=== PATIENT | female | born 1955 | race African-American/Black ===

== ENCOUNTER 2018-09-09 05:23 | Day surgery (SDC) | payer MEDICARE ==
[~2018-09-09] VITALS: Ht 149.9 cm; Wt 69.9 kg
--- NOTE | ~2018-09-09 | OP ---
PATIENT NAME: DEBORAH PIZANO MEDICAL RECORD: [id number] :51 LOCATION:D.OPS ADMISSION DATE: SURGEON: BUD ELIZABETH MD DATE OF OPERATION: 09/09/2018 PREOPERATIVE DIAGNOSIS: Carpal tunnel syndrome of the left with left ring finger trigger finger. POSTOPERATIVE DIAGNOSIS: Carpal tunnel syndrome of the left with left ring finger trigger finger. PROCEDURE: 1. Carpal tunnel release of the left wrist. 2. A1 sonia release of the left ring finger. SURGEON: Bud Elizabeth MD ANESTHESIA: None/local. INTRAOPERATIVE COMPLICATIONS: None. SUMMARY OF PATHOLOGIC FINDINGS: The patient has a very tight transverse carpal ligament consistent with the preoperative diagnosis, EMGs and NCVS. The patient also with a very tight A1 sonia consistent with diagnosis of trigger finger. OPERATIVE SUMMARY IN DETAIL: After obtaining the appropriate preoperative orthopedic surgery consent as well as anesthetic consultation, evaluation and clearance, the patient was brought to the operating room and placed on the operating room table in supine position. After adequate local anesthesia was administered, tourniquet was placed about the proximal aspect of the left upper extremity. Left upper extremity was then prepped and draped in routine sterile fashion. The arm was elevated and exsanguinated, tourniquet was inflated to 250 mmHg. Routine midpalmar incision was made in line with the third metacarpal ray, taken down to the level of the distal transverse metacarpal ligament. This was identified. A small incision was made here to identify the median nerve. The median nerve was identified and protected with a freer with the [place] light. Knife was then used to release the entire transverse carpal ligament. Having completed this, this wound was copiously irrigated and closed in a vertical mattress style fashion. A small incision was made over the A1 sonia of the ring finger. This was taken down to the level of the A1 sonia while the nerves were held retracted and protected. The A1 sonia was incised in its entirety. Visual inspection of the tendon showed some mild excoriated changes; however, no tearing was noted. This wound was irrigated and closed likewise. The area was infiltrated with 0.25% Marcaine. Sterile dressing was applied. Tourniquet was deflated. The patient was awakened and taken to recovery room in stable condition. All final needle and sponge counts were correct. TRANSINT:[id number] Voice Confirmation ID: [id number] DOCUMENT ID: [id number] OPERATIVE REPORT [id number] DEBORAH PIZANO MD, BUD WHEATLEY at 0840 CC: [id number] DICTATION DATE: 09/18/18 164 DIRECTOR OF STUDENT SERVICES: 09/18/18 2328 [facility] 09/09/18 [place] [id number] [place] [id number]
[2018-09-09 06:01] LABS: HEMATOCRIT 33.2 % (36.0-48.0); HEMOGLOBIN 11.1 g/dL (12-16); MCH 33.1 pg (26.0-34.0); MCHC 33.4 g/dL (31.0-37.0); MCV 99.1 fL (80.0-100.0); MEAN PLATELET VOLUME 9.3 fL (7.4-10.4); RBC 3.35 10x6/uL (4.00-5.40); RDW 12.9 % (11.5-14.5); WBC 5.2 10x3/uL (4.8-10.8)
[2018-09-09 06:42] VITALS: BP 132/72; Ht 149.9 cm; Wt 69.9 kg
== END 2018-09-09 09:20 | disposition home or self-care (01) ==
LOC: D.OPS 05:23 → D.PAN 07:30 → D.OPS 09:20 → D.PAN 09:55
PROVIDERS: Anesthesiology
DX: G56.02 Carpal tunnel syndrome, left upper limb (principal); M65.342 Trigger finger, left ring finger

== ENCOUNTER → 2018-09-23 17:26 | Outpatient (CLI) | payer MEDICARE ==
[2018-09-09 06:42] VITALS: BMI 31.1
[~2018-09-23 17:26] MED LIST: ASPIRIN81 MG PO; LOPRESSOR25 MG PO; PROTONIX40 MG PO
[2018-09-23 17:46] LABS: BASOPHILS 0.2 % (0-2); HEMATOCRIT 34.2 % (36.0-48.0); HEMOGLOBIN 11.5 g/dL (12-16); IMMATURE GRANULOCYTES 0.4 % (0-5); LYMPHOCYTES 22.3 % (15-50); MCH 33.4 pg (26.0-34.0); MCHC 33.6 g/dL (31.0-37.0); MCV 99.4 fL (80.0-100.0); MEAN PLATELET VOLUME 10.2 fL (7.4-10.4); MONOCYTES 12.3 % (2-11); NEUTROPHILS 62.8 % (40-80); PLATELET COUNT 263 10x3/uL (130-400); RBC 3.44 10x6/uL (4.00-5.40); RDW 12.7 % (11.5-14.5)
[2018-09-23 18:09] LABS: ALBUMIN 3.3 g/dL (3.4-5.0); BILIRUBIN - TOTAL 0.4 mg/dL (0.2-1.3); CALCIUM 8.5 mg/dL (8.5-10.1); CARBON DIOXIDE 26.5 mmol/L (21.0-32.0); CREATININE - SERUM 1.4 mg/dL (0.6-1.3); POTASSIUM - SERUM 4.5 mmol/L (3.5-5.1); PROTEIN - SERUM 8.1 g/dL (6.4-8.2)
[2018-09-30 14:07] LABS: WBC 5.1 10x3/uL (4.8-10.8)
== END | disposition home or self-care (01) ==
LOC: D.LABREF 17:26
PROVIDERS: Orthopaedic Surgery
DX: R55 Syncope and collapse (principal)

== ENCOUNTER 2018-09-27 02:14 | Observation (INO) | payer MEDICARE ==
[~2018-09-27] VITALS: Ht 149.9 cm; Wt 69.9 kg
--- NOTE | ~2018-09-27 | CN ---
PATIENT NAME:DEBORAH GRUBER MEDICAL RECORD: [id number] : 51 LOCATION:[facility] D.2124 ADMIT DATE: 09/27/18 ACCOUNT: [id number] CONSULTING PHYSICIAN: ZULLY AYALA MD REFERRING PHYSICIAN: ZULLY AYALA MD DATE OF CONSULTATION: 09/27/2018 DIAGNOSES: 1. Abdominal pain. 2. Nausea and vomiting. 3. Elevated troponin. HISTORY OF PRESENT ILLNESS: Ms. Gruber presents with an epigastric lower chest discomfort that she thinks is all abdominal and refuses to believe is cardiac but associated with nausea and vomiting, just started yesterday. Her troponin is elevated. PHYSICAL EXAMINATION: GENERAL APPEARANCE: Well nourished, well developed, appears stated age. Level of distress, comfortable. PSYCHIATRIC: Mental status, alert, normal affect. Orientation, oriented to time, place and person. EYES: Lids and conjunctiva, noninjected. No discharge, no pallor. ENT: Lips, teeth, gums, normal dentition. Oropharynx, no cyanosis, no pallor. NECK: Carotid arteries, bilateral normal upstroke, no bruits, no thrills. JUGULAR VEINS: No jugular venous pressure or distention. CERVICAL LYMPH NODES: Nontender, nonenlarged. THYROID: Not enlarged. Nontender. No nodules. LUNGS: Respiratory effort, unlabored. CHEST: Normal curvature. No thoracic deformity. No chest wall tenderness. Percussion, resonant. Auscultation, clear. No wheezes, no rales, no rhonchi. CARDIOVASCULAR: Precordial exam, nondisplaced. No heaves or pericardial thrills. Rate and rhythm, regular. Heart sounds, normal S1, normal S2. No S3, no gallop, no rub. Systolic murmur, not heard. Diastolic murmur, not heard. EXTREMITIES: No cyanosis, no edema. Peripheral pulses, full and equal in all extremities, except as noted. No bruits appreciated. ABDOMEN: Soft, nondistended. Normal aorta. No bruit. Nontender. No masses. Liver, nontender, no hepatomegaly. Spleen, nontender, no splenomegaly. MUSCULOSKELETAL: No joint tenderness. No joint swelling. No erythema. NEUROLOGICAL: Normal gait, normal strength, normal tone. SKIN: Warm and dry. OVERALL IMPRESSION: 1. Abdominal pain. 2. Lower chest pain, this is cardiac in etiology until proven otherwise. At this time, she does not want any cardiac workup as she does not believe that she had a non-Q-wave myocardial infarction. We will start her on a beta-john as her heart rate is approximately 90 and her systolic blood pressures are in the 140s to 160 range, will as well start her on nitrates. We will readdress the issue of cardiac catheterization with her especially if she continues to have symptomatology and otherwise at this point due to her wishes only medical management. TRANSINT:[id number] Voice Confirmation ID: [id number] DOCUMENT ID: [id number] CONSULT REPORT [id number] DEBORAH GRUBER, ZULLY ASHBY at 1025 CC: [id number] DICTATION DATE: 09/27/18 075 ONCOLOGY SOCIAL WORKER: 09/27/18 0845 ADM IN [place] [id number]
--- NOTE | ~2018-09-27 | HEMODYNAMI ---
PATIENT:DEBORAH PIZANO MEDICAL RECORD: [id number] : 51 LOCATION:[facility].2124 ADMISSION DATE: 09/27/18 Generatedon:09/27/201816:33 Patient name: DEBORAH PIZANO Patient #: [id number] SSN: : 1955 Date of study: 09/27/2018 Page: Of Hemodynamic Procedure Report Patient Data Patient Demographics Procedure consent was obtained First Name: DEBORAH Gender: Female Last Name: HARINDER : 1955 Middle Initial: M Age: 63 year(s) Patient #: [id number] Race: Black Additional ID: [id number] Contact details Address: [place] [address] State: [place] City: [place] Zip code: [address] Past Medical History Allergies Allergen Reaction Date Comments Reported Other allergy 09/27/2018 Codeine Admission Admission Data Admission Date: 09/27/2018 Admission Time: 6:16 Room #: D.2124 Lab Results Lab Result Date: 09/27/2018 Lab Result Time: 14:35 Biochemistry Name Units Result Min Max BUN mg/dl 22 --(----)-* 7 18 Creatinine mg/dl 1.3 --(---*)-- 0.6 1.3 CBC Name Units Result Min Max Hematocrit % 35.8 *-(----)-- 42 54 Hemoglobin g/dl 12.2 *-(----)-- 13.5 17.5 Procedure Procedure Types Cath Procedure Diagnostic Procedure LHC LHC w/Coronaries Procedure Description Procedure Date Procedure Date: 09/27/2018 Procedure Start Time: 16:24 Procedure End Time: 16:32 Procedure Staff Name Function En Rice MD Performing Physician Koko Mcgill RN Nurse Milton Licona RT Scrub Leatha Donis RT Monitor Procedure Data Cath Procedure Fluoroscopy Diagnostic fluoroscopy Total fluoroscopy Time: 0.7 time: 0.7 min min Diagnostic fluoroscopy Total fluoroscopy dose: 281 dose: 281 mGy mGy Contrast Material Contrast Material Type Amount (ml) Isovue 300 46 Entry Location Entry Primary Successful Side Size Upsize Upsize Entry Closure Succes sful Closure Location (Fr) 1 (Fr) 2 (Fr) Remarks Device Remarks Femoral Right 5 Fr Exoseal artery Estimated blood loss: 5 ml Diagnostic catheters Device Type Used For End Catheter Placement MULTIPACK Pigtail 5 Fr Procedure catheter MULTIPACK JL 4.0 5Fr Procedure catheter MULTIPACK 3DRC 5Fr Procedure catheter Procedure Complications No complications Procedure Medications Medication Administration Route Dosage Oxygen etCO2 Nasal cannula 2 l/min Heparin Flush Bag added to field 2 bags (1000units/500ml NS) 0.9% NaCl I.V. 100 ml/hr Fentanyl I.V. 50 mcg Versed I.V. 1 mg Hemodynamics Rest HGB: 12.2 (g/dl) Heart Rate: 86 (bpm) Snapshots Pre Cath Intra NCS Post Cath Vital Signs Time Heart Resp SPO2 etCO2 NIBP (mmHg) Rhythm Pain Sedation Rate (ipm) (%) (mmHg) Status Level (bpm) 16:10:44 87 17 91 36.3 127/83(107) NSR 0 (11) 10(A) , No pain 16:18:23 87 17 98 38.6 117/79(98) NSR 0 (11) 10(A) , No pain 16:26:08 88 16 100 25.7 125/77(98) NSR 0 (11) 9(A) , No pain 16:30:46 90 16 99 36.3 117/74(100) NSR 0 (11) 9(A) , No pain Medications Time Medication Route Dose Verified Delivered Reason Notes Effe ctiveness by by 16:09:00 Oxygen etCO2 2 En [place] Per Nasal l/min Dwayne Mcgill RN physician cannula 16:09:09 Heparin Flush added 2 En [place] used for Bag to bags Dwayne Mcgill RN procedure (1000units/500ml field NS) 16:09:18 0.9% NaCl I.V. 100 En [place] Per ml/hr Dwayne Mcgill RN physician 16:19:16 Fentanyl I.V. 50 En [place] for mcg Dwayne Mcgill RN sedation 16:19:22 Versed I.V. 1 mg En Sutherland for Tauth MD Mcgill RN sedation Procedure Log Time Note 15:30:52 Miltonleonel Licona RT(R) sent for patient. Start room use. 15:45:52 Time tracking: Regular hours (M-F 7:00 - 5:00) 15:45:56 Plan of Care:Hemodynamics will remain stable., Cardiac rhythm will remain stable., Comfort level will be maintained., Respiratory function will remain adequate., Patient/ family verbilizes understanding of procedure., Procedure tolerated without complication., Recovers from procedure without complications.. 15:54:58 H&P Date Dictated: 09/27/2018 Within 30 days and on chart.. 15:56:20 Lab Result : BUN 22 mg/dl 15:56:20 Lab Result : Hemoglobin 12.2 g/dl 15:56:20 Lab Result : Creatinine 1.3 mg/dl 15:56:20 Lab Result : Hematocrit 35.8 % 16:03:29 Patient received from Med II to CCL 2 Alert and oriented. Tansferred to table in Supine position. 16:03:30 Warm blankets applied, and mal hugger turned on for patient comfort. 16:03:30 Correct patient and procedure confirmed by team. 16:03:35 Signed procedure consent form obtained from patient. 16:03:36 ECG and BP/O2 sat monitors applied to patient. 16:03:48 Pre-procedure instructions explained to patient. 16:03:48 Pre-op teaching completed and patient verbalized understanding. 16:09:00 Oxygen 2 l/min etCO2 Nasal cannula was administered by Koko Mcgill RN; Per physician; 16:09:09 Heparin Flush Bag (1000units/500ml NS) 2 bags added to field was administered by Koko Mcgill RN; used for procedure; 16:09:18 0.9% NaCl 100 ml/hr I.V. was administered by Koko Mcgill RN; Per physician; 16:09:48 Vital chart was started 16:13:17 Baseline sample Acquired. 16:13:22 Rhythm: sinus rhythm 16:13:23 Full Disclosure recording started 16:13:28 Family in patients room. 16:13:32 Patient NPO since Midnight. 16:13:42 Patient allergic to Other allergyCodeine 16:13:43 Is the patient allergic to Iodine/contrast media? No. 16:13:47 Is patient on blood thinner?No 16:13:49 Patient diabetic? No. 16:15:08 Previous problem with sedation/anesthesia? No ? 16:15:09 Snore? Yes 16:15:10 Sleep apnea? No 16:15:11 Deviated septum? No 16:15:12 Opens mouth fully? Yes 16:15:12 Sticks out tongue? Yes 16:15:14 Airway obstruction? No ? 16:15:15 Dentures? No ? 16:15:19 Pre procedure: right dorsailis pedis pulse 2+ Normal; easily identifiable; not easily obliterated 16:15:20 Patient pain scale 0/10 ?. 16:15:26 IV patent on arrival in right forearm with 0.9% NaCl at [facility]. 16:15:27 Lab results completed and on chart. 16:15:30 Right groin area was prepped with chlora-prep and draped in sterile fashion 16:15:31 Alarms reviewed by R. N. 16:15:31 Sharps counted by scrub and verified by R.N. 16:15:33 Use device set Femoral Dx 16:15:34 ACIST Syringe (36638) opened to sterile field. 16:15:34 Bag Decanter (2002S) opened to sterile field. 16:15:35 Medline Cath Pack ([id number]) opened to sterile field. 16:15:36 ACIST Hand Control (28907) opened to sterile field. 16:15:36 ACIST Manifold (95938) opened to sterile field. 16:15:37 Tegaderm 4 x 4 (1626W) opened to sterile field. 16:15:38 SHEATH 5FR [place] (OKV702) opened to sterile field. 16:15:39 DIAGNOSTIC WIRE .035 260cm J wire (615945) opened to sterile field. 16:15:40 DIAGNOSTIC Multipack 5Fr catheter set ([id number]) opened to sterile field. 16:17:43 Physician arrived 16:17:43 --------ALL STOP TIME OUT------ 16:17:43 Final Timeout: patient, procedure, and site verified with staff and physician. All members of the team are in agreement. 16:17:46 Right groin site verified by team. 16:17:49 Physical assessment completed. ASA score P 2 - A patient with mild systemic disease as per En Rice MD. 16::51 Sedation plan: IV Moderate Sedation Medication:Versed, Fentanyl 16::16 Fentanyl 50 mcg I.V. was administered by Koko Mcgill RN; for sedation; 16:: Versed 1 mg I.V. was administered by Koko Mcgill RN; for sedation; 16:24:19 Procedure started. 16:24:35 Vital chart was stopped 16:24:37 Vital chart was started 16::38 Local anesthetic to right femoral artery with Lidocaine 2% by En Rice MD.INITIAL ACCESS ONLY 16:24:48 A 5 Fr sheath was inserted into the Right Femoral artery 16:25:11 A MULTIPACK Pigtail 5 Fr catheter was advanced over the wire and used for Procedure. 16::38 Injector settings: Ml/sec: 10, Volume: 20, 16:25:44 LV gram done using SMITH 16:25:48 EF : 50 % 16:25:50 Catheter removed. 16:25:59 A MULTIPACK JL 4.0 5Fr catheter was advanced over the wire and used for Procedure. 16:26:56 LCA angiography performed. 16::57 Catheter removed. 16:27:07 A MULTIPACK 3DRC 5Fr catheter was advanced over the wire and used for Procedure. 16:27:47 RCA angiography performed. 16::48 Catheter removed. 16:27:55 EXOSEAL 5Fr (EX500) opened to sterile field. 16:28:34 Sheath removed intact; hemostasis achieved with Exoseal to the Right Femoral artery. 16:28:39 Procedure ended.(Physican Out) ::28 Fluoroscopy time 00.70 minutes. 16::34 Fluoroscopy dose: 281 mGy 16::34 Flurop Dose total: 281 16::38 Contrast amount:Isovue 300 46ml. 16:29:43 Post-op/insertion site Right Femoral artery dressed using a 4 x 4 and Tegaderm. 16::46 Post right femoral artery:stable, soft, clean and dry 16::49 Post-procedure physical assessment completed. ASA score P 2 - A patient with mild systemic disease as per En Rice MD. 16:29:53 Post procedure rhythm: sinus rhythm 16::55 Estimated blood loss: 5 ml 16::57 Post procedure instruction explained to patient.Patient verbalizes understanding. 16:29:58 Patient needs reinforcement of post procedure teaching. 16:32:09 Procedure and supply charges have been captured, reviewed, submitted and are correct. 16:32:21 See physician's report for complete and final results. 16:32:25 Procedure Complication : No complications 16:32:28 Report given to PCU. 16:32:34 Patient transfered to PCU with Bed. 16:32:57 Procedure ended. 16:32:57 Full Disclosure recording stopped 16:33:04 End room use (Document Last) 16:33:26 Vital chart was stopped Device Usage Item Name Manufacture Quantity Catalog Hospital Part Current Minimal L ot# / Number Charge Number Stock Stock Serial# Code ACIST Acist 1 27644 238576 427175 [id number] 20 Syringe Medical (68257) Systems Inc Bag Microtek 1 2001S 862770 77871 672745 5 Decanter Medical Inc. () Medline Medline 1 [id number] 258778 07368 863015 5 Cath Pack ([id number]) ACIST Hand Acist 1 87405 441709 849602 784974 5 Control Medical (48652) Systems Inc ACIST Acist 1 74448 763843 010720 909402 5 Manifold Medical (63294) Systems Inc Tegaderm 4 3M 1 1626W 306766 735641 897075 5 x 4 (1626W) SHEATH 5FR Terumo 1 [id number] 019283 469037 155061 5 [place] (BVE969) DIAGNOSTIC St Pratik 1 023779 094436 446095 801795 30 WIRE .035 260cm J wire (122975) DIAGNOSTIC Cardinal 1 JM5446 806013 41545 195311 30 Multipack Health 5Fr catheter set (IW4136) MULTIPACK Cardinal 1 500258 5 Pigtail 5 Health Fr catheter MULTIPACK Cardinal 1 982711 5 JL 4.0 5Fr Health catheter MULTIPACK Cardinal 1 640422 5 3DRC 5Fr Health catheter EXOSEAL 5Fr Cardinal 1 EX500 676244 360403 492474 10 (EX500) Health Signature Audit [place] Stage Time Signature Unsigned Intra-Procedure 09/27/2018 Leatha Donis 4:33:23 PM RT(R) Signatures Monitor : Leatha Donis Signature : RT Date : Time : [address] [place] [address]
--- NOTE | ~2018-09-27 | OP ---
PATIENT NAME: DEBORAH PIZANO MEDICAL RECORD: [id number] :51 LOCATION:D.M2 D.2124 ADMISSION DATE:09/27/18 SURGEON: ZULLY AYALA MD DATE OF OPERATION: 09/27/2018 PROCEDURES: 1. Left heart catheterization. 2. Selective coronary angiography. 3. Left ventriculogram. INDICATION: Chest pain and elevated troponin. PROCEDURE IN DETAIL: After informed consent was obtained and after a detailed description of the risks, benefits as well as alternative therapies, the patient elected to proceed with angiogram and heart catheterization. The right femoral area was prepped and draped in normal sterile fashion. Right femoral artery was cannulated via modified Seldinger technique with placement of 6-[place] sheath. All catheters exchanged through this sheath. FINDINGS: The left ventriculogram was performed in standard 30-degree SMITH view, reveals good cardiac wall motion throughout all segments. Overall ejection fraction estimated 60%. SELECTIVE CORONARY ANGIOGRAPHY: Left main, left anterior descending, left circumflex, right coronary artery are all smooth-walled vessels with no angiographic evidence of coronary artery disease. OVERALL IMPRESSION: 1. No angiographic evidence of coronary artery disease. 2. Normal left heart pressures. 3. Normal left ventricular systolic function. TRANSINT:[id number] Voice Confirmation ID: [id number] DOCUMENT ID: [id number] ZULLY AYALA MD at 1108 CC: [id number] DICTATION DATE: 09/27/18 1632 MEDICAL FIELD REPRESENTATIVE: 09/28/18 0017 DIS IN 09/28/18 [place] [address]
[2018-09-27 02:39] VITALS: BP 169/96
[2018-09-27 02:41] LABS: APPEARANCE CLEAR (CLEAR); BACTERIA NONE SEEN /hpf (NONE SEEN); BILIRUBIN NEGATIVE (NEGATIVE); COLOR YELLOW (YELLOW); EPITHELIAL CELLS RARE /hpf (0-5); GLUCOSE NEGATIVE (NEGATIVE); KETONE NEGATIVE (NEGATIVE); NITRITE NEGATIVE (NEGATIVE); PROTEIN TRACE mg/dL (NEGATIVE); SPECIFIC GRAVITY 1.015 (1.005-1.020); UROBILINOGEN NORMAL (NORMAL); WHITE CELLS - URINE 0-5 /hpf (0-5)
[2018-09-27 02:42] LABS: BASOPHILS 0.1 % (0-2); EOSINOPHILS 0 % (0-7); HEMATOCRIT 35.8 % (36.0-48.0); HEMOGLOBIN 12.2 g/dL (12-16); IMMATURE GRANULOCYTES 0.3 % (0-5); LYMPHOCYTES 12.1 % (15-50); MCH 33.1 pg (26.0-34.0); MCHC 34.1 g/dL (31.0-37.0); MEAN PLATELET VOLUME 9.9 fL (7.4-10.4); NEUTROPHILS 81.5 % (40-80); PLATELET COUNT 288 10x3/uL (130-400); RBC 3.69 10x6/uL (4.00-5.40); RDW 12.3 % (11.5-14.5); WBC 10.4 10x3/uL (4.8-10.8)
[2018-09-27 02:53] LABS: ALBUMIN 3.5 g/dL (3.4-5.0); ANION GAP 13.7 mmol/L (8-16); BILIRUBIN - TOTAL 0.31 mg/dL (0.2-1.3); CALCIUM 9.6 mg/dL (8.5-10.1); CARBON DIOXIDE 24.5 mmol/L (21.0-32.0); CREATININE - SERUM 1.3 mg/dL (0.6-1.3); POTASSIUM - SERUM 4.2 mmol/L (3.5-5.1); PROTEIN - SERUM 9.1 g/dL (6.4-8.2)
[2018-09-27 03:13] LABS: TROPONIN-I 0.102 ng/mL (0.000-0.060)
[2018-09-27 06:52] VITALS: BP 147/87; BMI 31.1
[2018-09-27 14:42] VITALS: BP 141/82
[2018-09-27 17:08] VITALS: BP 124/69
[2018-09-27 17:23] LABS: UDS - AMPHET NEGATIVE QUAL (NEGATIVE); UDS - BARB NEGATIVE QUAL (NEGATIVE); UDS - BENZO NEGATIVE QUAL (NEGATIVE); UDS - COCAINE NEGATIVE QUAL (NEGATIVE); UDS - OPIATE POSITIVE QUAL (NEGATIVE); UDS - PCP NEGATIVE QUAL (NEGATIVE); UDS - THC NEGATIVE QUAL (NEGATIVE)
[2018-09-27 17:28] LABS: APPEARANCE CLEAR (CLEAR); BILIRUBIN NEGATIVE (NEGATIVE); COLOR YELLOW (YELLOW); GLUCOSE NEGATIVE (NEGATIVE); KETONE NEGATIVE (NEGATIVE); NITRITE NEGATIVE (NEGATIVE); PROTEIN TRACE mg/dL (NEGATIVE); UROBILINOGEN NORMAL (NORMAL)
[2018-09-27 18:59] LABS: % SATURATION 16 % (15-55); IRON 40 ug/dl (35-150); TOTAL IRON BIND CAPACITY 239 ug/dl (260-445); UNSAT IRON BIND CAPACITY 199 ug/dl (150-375)
[2018-09-27 19:15] LABS: BASOPHILS 0.1 % (0-2); EOSINOPHILS 0.3 % (0-7); HEMATOCRIT 33.2 % (36.0-48.0); HEMOGLOBIN 10.9 g/dL (12-16); IMMATURE GRANULOCYTES 0.1 % (0-5); LYMPHOCYTES 15.6 % (15-50); MCH 32.6 pg (26.0-34.0); MCHC 32.8 g/dL (31.0-37.0); MEAN PLATELET VOLUME 9.8 fL (7.4-10.4); MONOCYTES 10.5 % (2-11); NEUTROPHILS 73.4 % (40-80); PLATELET COUNT 235 10x3/uL (130-400); RBC 3.34 10x6/uL (4.00-5.40); RDW 12.9 % (11.5-14.5)
[2018-09-27 19:16] LABS: MCV 99.4 fL (80.0-100.0); WBC 6.8 10x3/uL (4.8-10.8)
[2018-09-27 20:00] VITALS: BP 134/801
[2018-09-27 20:35] LABS: ALBUMIN 2.9 g/dL (3.4-5.0); ANION GAP 13.6 mmol/L (8-16); BILIRUBIN - TOTAL 0.35 mg/dL (0.2-1.3); CALCIUM 8.4 mg/dL (8.5-10.1); CARBON DIOXIDE 24.6 mmol/L (21.0-32.0); CREATININE - SERUM 1.3 mg/dL (0.6-1.3); POTASSIUM - SERUM 4.2 mmol/L (3.5-5.1); PROTEIN - SERUM 7.9 g/dL (6.4-8.2)
[2018-09-27 23:53] VITALS: BP 115/63
[2018-09-28 04:00] VITALS: BP 123/70
[2018-09-28 05:56] LABS: BASOPHILS 0.1 % (0-2); EOSINOPHILS 0.2 % (0-7); HEMATOCRIT 30.2 % (36.0-48.0); IMMATURE GRANULOCYTES 0.2 % (0-5); LYMPHOCYTES 13.3 % (15-50); MCH 32.5 pg (26.0-34.0); MCHC 33.1 g/dL (31.0-37.0); MCV 98.1 fL (80.0-100.0); MONOCYTES 11.2 % (2-11); PLATELET COUNT 250 10x3/uL (130-400); RBC 3.08 10x6/uL (4.00-5.40); RDW 13.2 % (11.5-14.5); WBC 8.5 10x3/uL (4.8-10.8)
[2018-09-28 06:08] LABS: ALBUMIN 2.7 g/dL (3.4-5.0); ANION GAP 13.1 mmol/L (8-16); BILIRUBIN - TOTAL 0.4 mg/dL (0.2-1.3); CALCIUM 7.9 mg/dL (8.5-10.1); CARBON DIOXIDE 26.1 mmol/L (21.0-32.0); CREATININE - SERUM 1.3 mg/dL (0.6-1.3); MAGNESIUM - SERUM 1.5 mg/dL (1.8-2.4); PHOSPHOROUS 3.1 mg/dL (2.5-4.9); POTASSIUM - SERUM 4.2 mmol/L (3.5-5.1); PROTEIN - SERUM 7.1 g/dL (6.4-8.2)
[2018-09-28 07:41] VITALS: BP 138/78
[2018-09-28 10:22] VITALS: Ht 149.9 cm; Wt 69.9 kg
[2018-09-28 11:28] VITALS: BP 110/65
[2018-09-28] MEDS ORDERED: PROTONIX40 MG PO (11:43)
[2018-09-28] MEDS ORDERED: ASPIRIN81 MG PO (11:43)
[2018-09-28] MEDS ORDERED: LOPRESSOR25 MG PO (11:43)
[2018-09-30 12:10] LABS: FOLATE (FOLIC ACID) - SERUM 13.3 ng/mL (>3.0)
== END 2018-09-28 15:42 | disposition home or self-care (01) ==
LOC: D.ER 02:14 → D.M2 06:16 → OBSVTIME 08:00 → D.M2 09-28 15:42
PROVIDERS: Family Medicine; Internal Medicine Nephrology
DX: R07.9 Chest pain, unspecified (principal); R79.89 Other specified abnormal findings of blood chemistry; R10.9 Unspecified abdominal pain; K21.9 Gastro-esophageal reflux disease without esophagitis; D64.9 Anemia, unspecified

== ENCOUNTER 2019-11-13 11:49 | Emergency (ER) | payer OTHER ==
[~2019-11-13] VITALS: Ht 149.9 cm; Wt 53.8 kg
--- NOTE | ~2019-11-13 | CN ---
PATIENT NAME:DEBORAH GRUBER MEDICAL RECORD: [id number] : 51 LOCATION:D.ER ADMIT DATE: ACCOUNT: [id number] CONSULTING PHYSICIAN: ZULLY AYALA MD REFERRING PHYSICIAN: DAMION ULLOA MD DATE OF CONSULTATION: 11/13/2019 CARDIOLOGY CONSULTATION DIAGNOSES: 1. Non-Q-wave myocardial infarction. 2. Shortness of breath. 3. Congestive heart failure, pulmonary edema. 4. Pleural effusion. 5. Lower extremity edema. 6. Hypertension. HISTORY OF PRESENT ILLNESS: Mrs. Gruber presents to the Emergency Room with shortness of breath and some chest pressure. Her troponin is positive. Her EKG has nonspecific ST-T abnormalities. She has lower extremity edema, pulmonary edema as well as right pleural effusion. She states that she had a cardiac workup in the past at [facility]. She does not say exactly when and she has no heart problems. She refuses any further cardiac workup or treatment here. She refuses to believe that she had a myocardial infarction or has any cardiac problems and that the lower extremity edema and the shortness of breath is related to her heart condition and she does not want any further workup or treatment and wants to leave even if she means leaving AMA. PHYSICAL EXAMINATION: CONSTITUTIONAL/GENERAL APPEARANCE: Well nourished, well developed, appears stated age. EYES: Lids and conjunctivae noninjected. No discharge. No pallor. ENT: Lips within normal limit. No cyanosis. No pallor. NECK: Carotid arteries, bilateral normal upstroke. No bruits. No thrills. No jugular venous pressure or distention. CERVICAL LYMPH NODES: Nontender. Nonenlarged. THYROID: Not enlarged. No nodules. CARDIOVASCULAR: Precordial exam, nondisplaced. No heaves or pericardial thrills. Rate and rhythm, regular. Heart sounds, normal S1, normal S2. No S3, no gallop, no rub. Systolic murmur, not heard. Diastolic murmur, not heard. PULMONARY: There are bibasilar crackles. ABDOMEN: Soft, nondistended, nontender. No abdominal pain, no vomiting and normal appetite. MUSCULOSKELETAL: Lower extremities; she has +3 edema. SKIN: Warm and dry. OVERALL IMPRESSION: Non-Q-wave myocardial infarction, most likely she does have coronary artery disease and has a resultant cardiomyopathy and is in heart failure, right and left-sided. This is the etiology of the pleural effusion, pulmonary edema and lower extremity edema; however, she does not want any cardiac workup at this time. Hence, we will give her our information, she can come back at a time when she decides she does want further cardiac workup. TRANSINT:[id number] Voice Confirmation ID: [id number] DOCUMENT ID: [id number] CONSULT REPORT [id number] DEBORAH GRUBER JEFFREY MD CC: [id number] DICTATION DATE: 11/13/19 164 PIANO PROFESSOR: 11/13/198 DEP ER 11/13/19 [place] [id number] [place] [id number]
[2019-11-13] MEDS ORDERED: ELIQUIS5 MG PO (13:05)
[2019-11-13 13:38] LABS: BASOPHILS 0.6 % (0-2); EOSINOPHILS 0.9 % (0-7); HEMATOCRIT 30.7 % (36.0-48.0); HEMOGLOBIN 10.1 g/dL (12-16); IMMATURE GRANULOCYTES 0.3 % (0-5); LYMPHOCYTES 30.1 % (15-50); MCH 35.1 pg (26.0-34.0); MCHC 32.9 g/dL (31.0-37.0); MCV 106.6 fL (80.0-100.0); MEAN PLATELET VOLUME 10.4 fL (7.4-10.4); MONOCYTES 8.3 % (2-11); NEUTROPHILS 59.8 % (40-80); RBC 2.88 10x6/uL (4.00-5.40); RDW 17.1 % (11.5-14.5); WBC 3.4 10x3/uL (4.8-10.8)
[2019-11-13 13:40] LABS: PLATELET COUNT 178 10x3/uL (130-400)
[2019-11-13 13:52] LABS: CALC OSMOLALITY 281 mosm/kg (275-300); CALCIUM 8.2 mg/dL (8.5-10.1); CARBON DIOXIDE 29.7 mmol/L (21.0-32.0); CHLORIDE - SERUM 102 mmol/L (98-107); CREATININE - SERUM 1.5 mg/dL (0.6-1.3); GLUCOSE 98 mg/dL (74-106); POTASSIUM - SERUM 3.5 mmol/L (3.5-5.1); SODIUM 139 mmol/L (136-145); UREA NITROGEN 23 mg/dL (7-18); eGFR NON AFRICAN AMERICAN 37 mL/min (90-120)
[2019-11-13 13:54] LABS: APTT 35.4 SECONDS (22.8-39.4); INR 3.21 (0.85-1.17); PROTIME 32.3 SECONDS (11.6-15.0)
[2019-11-13 14:13] LABS: ALBUMIN 2.6 g/dL (3.4-5.0); ALKALINE PHOSPHATASE 52 U/L (46-116); ALT (SGPT) 78 U/L (10-68); BILIRUBIN - TOTAL 0.72 mg/dL (0.2-1.3); CKMB 1.7 U/L (0.0-3.6); CREATINE KINASE 83 UL (21-215); PRO BNP 13591 pg/mL (0-125); PROTEIN - SERUM 6.3 g/dL (6.4-8.2)
[2019-11-13 14:18] LABS: TROPONIN-I 0.107 ng/mL (0.000-0.060)
[2019-11-13 16:44] VITALS: Ht 149.9 cm; Wt 53.8 kg
[2019-11-13 16:56] VITALS: BP 98/70
== END 2019-11-13 16:59 | disposition left against medical advice (07) ==
LOC: D.ER 11:49
PROVIDERS: Emergency Medicine
DX: J90 Pleural effusion, not elsewhere classified (principal); R60.0 Localized edema; R06.00 Dyspnea, unspecified; Z86.73 Personal history of transient ischemic attack (TIA), and cerebral infarction without residual deficits; J45.909 Unspecified asthma, uncomplicated; K21.9 Gastro-esophageal reflux disease without esophagitis; R77.8 Other specified abnormalities of plasma proteins